=== PATIENT | female | born 1950 | race Caucasian/White ===

== ENCOUNTER 2017-04-14 15:33 | Outpatient (CLI) | payer MEDICARE ==
--- NOTE | 2017-04-14 16:04 | RAD ---
LEFT THUMB THREE VIEWS: History: Left thumb pain. FINDINGS: There is lateral subluxation at the first carpal metacarpal joint, where articular surface irregulari ty, joint space loss, and osteophytosis are present. Mild osteoarthritic changes are present at the interphalangeal joint. No acute fracture, dislocation or other osseous erosions. IMPRESSION: 1. Severe osteoarthritic changes of the left first carpal metacarpal joint. POS: PILO
== END 2017-04-14 15:34 | disposition home or self-care (01) ==
LOC: SCSRAD 15:33
PROVIDERS: ATTEND Family Medicine
DX: M79.645 Pain in left finger(s) (principal); M18.12 Unilateral primary osteoarthritis of first carpometacarpal joint, left hand